=== PATIENT | female | born 2000 | race Caucasian/White ===

== ENCOUNTER 2019-05-21 09:09 | Emergency (ER) | payer BC ==
[~2019-05-21] VITALS: Ht 157.5 cm; Wt 63.5 kg
[2019-05-21 09:18] VITALS: BP_SYST 145
--- NOTE | 2019-05-21 09:31 | NUR ---
Patient to ER bed 7 to gown for evaluation. Side rails up. Report given to Rica HENNESSY.
--- NOTE | 2019-05-21 09:41 | NUR ---
ER Dr. ORTIZ at bedside examining patient.
--- NOTE | 2019-05-21 09:42 | NUR ---
PATIENT CAME IN COMPLAINING OF SORE THROAT, FEVER UP TO 101, AND BODY ACHES. PATIENT WAS IN BRAZIL AND STARTED TO FEEL SICK. PATIENT STATES SHE WAS AROUND SOME ONE SICK IN BRAZIL. PATIENT STATES SHE WAS TAKING ADVIL BUT NOT HELPING. PATIENT ALSO COMPLAINING OF CHEST PRESSURE INTERMITENT. PATIENT DENIES NAUSEA, VOMITING, AND DIRRHEA. PATIENT IS ALERT AND ORIENTED X4.
[2019-05-21] MEDS ORDERED: KETOROLAC TROMETHAMINE 30 MG VIAL IM ONE (09:45)
--- NOTE | 2019-05-21 09:55 | NUR ---
# 20 gauge angiocath placed to LEFT AC. Use of asceptic technique. Opsite placed over site. Blood return noted. Blood for lab drawn from site. Flushed with 10 cc of normal saline. No evidence of infiltration noted. Patient tolerated well.
--- NOTE | 2019-05-21 09:58 | NUR ---
PATIENT GETTING X RAY IN BED.
[2019-05-21] MEDS: NACL 0.9% 2,000 ML IV ONE (10:12)
[2019-05-21] MEDS: KETOROLAC TROMETHAMINE 30 MG VIAL IVP ONE ×2 (10:12→11:28)
[2019-05-21 10:18] LABS: BILIRUBIN,URINE NEGATIVE (NEGATIVE); BLOOD, URINE NEGATIVE (NEGATIVE); CLARITY/URINE CLEAR (CLEAR); COLOR,URINE YELLOW (YELLOW); GLUCOSE,URINE NEGATIVE (NEGATIVE); KETONES,URINE 1+ (NEGATIVE); LEUKOCYTE ESTERASE ,URINE TRACE (NEGATIVE); NITRITE, URINE NEGATIVE (NEGATIVE); PROTEIN URINE NEGATIVE (NEGATIVE); UROBILINOGEN,URINE 0.2 (0.2-1.0)
[2019-05-21 10:19] LABS: BASOPHILS % (AUTO) 0.4 % (0.0-2.0); EOSINOPHILS % (AUTO) 0.2 % (0.0-4.0); HEMOGLOBIN 13.1 g/dL (12.0-16.0); LYMPHOCYTES # (AUTO) 0.6 K/uL (1.0-5.5); MEAN CORPUSCULAR HEMOGLOBIN 30 pg (27-31); MEAN CORPUSCULAR HGB CONC 34 % (32-36); MEAN CORPUSCULAR VOLUME 88 fL (79.0-98.0); MONOCYTES # (AUTO) 0.6 K/uL (0.0-1.0); MONOCYTES % (AUTO) 15.6 % (1.7-9.3); NEUTROPHILS # (AUTO) 2.7 K/uL (1.8-7.7); NEUTROPHILS % (AUTO) 68.8 % (40.0-70.0); PLATELET COUNT (AUTO) 162 K/uL (130-430); RED BLOOD CELL COUNT(AUTO) 4.33 MIL/uL (4.2-6.2); RED CELL DISTRIBUTION WIDTH 14.3 % (9.0-15.0); WHITE BLOOD COUNT (AUTO) 3.9 K/uL (4.5-11.0)
[2019-05-21 10:43] LABS: CALCIUM 8.7 mg/dL (8.4-11.0); CREATININE 1.09 mg/dL (0.55-1.30); POTASSIUM 3.4 mmol/L (3.5-5.1)
[2019-05-21 10:47] LABS: ALBUMIN 3.9 g/dL (3.4-4.8); TOTAL BILIRUBIN 0.3 mg/dL (0.0-1.0)
[2019-05-21] MEDS: ONDANSETRON HCL 4 MG/2 ML VIAL IVP ONE (10:52)
[2019-05-21] MEDS: MORPHINE 4 MG/ML INJ. SYRINGE IVP ONE (10:53)
[2019-05-21 10:57] LABS: INR 1.1 (0.8-1.2)
[2019-05-21 10:58] LABS: BACTERIA,URINE FEW /HPF (None Seen); RBC,URINE 0-3 /HPF (0-3)
--- NOTE | 2019-05-21 10:58 | NUR ---
WAS GIVING PATIENT MORHINE FOR PAIN. HALF WAY THROUGH PATIENT COMPLAINING OF DIZZINESS AND DIDNT WANT REST OF MORPHINE. PATIENT ALSO HAS SLIGHT TEMP OF 99.9. DR ORTIZ AWARE.
[2019-05-21 10:59] LABS: MUCUS,URINE 1+ /LPF (None Seen)
--- NOTE | 2019-05-21 11:20 | NUR ---
DR ORTIZ AT BEDSIDE TALKING TO PATIENT.
[2019-05-21] MEDS ORDERED: cefTRIAXone 1 GM VIAL ONE (11:25)
[2019-05-21] MEDS: ACETAMINOPHEN 500 MG TABLET PO ONE (11:27)
[2019-05-21] MEDS: cefTRIAXone 1 GM in D5W 50 ML IV ONE (11:28)
[2019-05-21 12:25] VITALS: BP_SYST 115
--- NOTE | 2019-05-21 12:25 | NUR ---
Patient given written and verbal discharge instructions and verbalizes understanding. ER MD discussed with patient the results and treatment provided. Patient in stable condition. ID arm band removed. IV catheter removed intact and dressing applied, no active bleeding. Rx of KEFLEX,NORCO,NAPROSYN given. Patient educated on pain management and to follow up with PMD. Pain Scale 2. Opportunity for questions provided and answered. Medication side effect fact sheet provided.
== END 2019-05-21 12:25 | disposition home or self-care (01) ==
LOC: SED 09:09
DX: N39.0 Urinary tract infection, site not specified (principal); M79.10 Myalgia, unspecified site; R50.9 Fever, unspecified
CPT/HCPCS: 36415; 71045; 80053; 81000; 81025; 83605; 85025; 85610; 85730; 87040; 87086; 96365; 96375; 99284; J0696; J1885; J2270; J2405; J7030